=== PATIENT | male | born 1930 | race African-American/Black ===

== ENCOUNTER 2018-05-21 08:37 | Emergency (ER) | payer OTHER ==
[~2018-05-21] VITALS: Ht 177.8 cm; Wt 76.0 kg
[2018-05-21 08:40] VITALS: BP 176/153
[2018-05-21] MEDS ORDERED: AMIODARONE HCL 50MG/ML 3ML VIAL IV ONE ×2 (08:48→12:37)
[2018-05-21] MEDS ORDERED: LOSA25TA3 PO (08:49)
[2018-05-21] MEDS ORDERED: ATOR10TA PO (08:49)
[2018-05-21] MEDS ORDERED: EPINEPHRINE 0.1MG/ML (1:10,000) 10ML SYR ONE ×5 (09:04→12:37)
[2018-05-21] MEDS ORDERED: DOPAMINE 400MG PREMIX 250 ML IV ONE (09:20)
[2018-05-21] MEDS ORDERED: EPINEPHRINE 1 MG in SODIUM CHLORIDE 0.9% 249 ML IV STA ×2 (09:50→09:52)
[2018-05-21] MEDS ORDERED: VECURONIUM BROMIDE 10 MG/VIAL IV ONE ×2 (11:30→15:04)
[2018-05-21] MEDS ORDERED: MAGNESIUM SULFATE 4G IN WATER 100ML PREMIX IV ONE (12:37)
[2018-05-21] MEDS ORDERED: CALCIUM CHLORIDE 1GM/10ML SYR IV ONE (12:37)
[2018-05-21] MEDS ORDERED: ATROPINE SULFATE 1MG/10ML SYR ONE (12:37)
[2018-05-21] MEDS ORDERED: SODIUM BICARBONATE 7.5% 0.9 MEQ/ML 50ML SYR IV ONE (12:37)
[2018-05-21] MEDS ORDERED: SODIUM CHLORIDE 0.9% 10ML VIAL ONE (15:04)
[2018-05-26] MEDS ORDERED: REGADENOSON 0.4 MG/5 ML IV ONE (11:52)
== END 2018-05-21 10:01 | disposition expired ==
LOC: ER 09:07
DX: I46.9 Cardiac arrest, cause unspecified (principal); I10 Essential (primary) hypertension; E78.00 Pure hypercholesterolemia, unspecified
CPT/HCPCS: 31500; 92950; 93005; 96374; 99291; A4216; J0282; J0461; J1265; J3475; J3490; J7050; A4315